=== PATIENT | male | born 1975 | race Caucasian/White ===

== ENCOUNTER 2018-01-13 14:09 | Inpatient (IN) | payer MEDICAID, OTHER ==
[2018-01-13] MEDS ORDERED: ADENOSINE 0 ML (14:26)
[2018-01-13 14:28] LABS: ADD MAN DIFF? NO
[2018-01-13 14:31] LABS: WHITE BLOOD COUNT 11.9 10^3/ul (4.8-10.8)
[2018-01-13 14:31] LABS: BASOPHIL # 0.1 10^3/ul (0.0-0.1); BASOPHILS % 0.5 % (0.0-2.0); EOSINOPHILS # 0.3 10^3/ul (0.0-0.5); EOSINOPHILS % 2.2 % (0.0-7.0); HEMATOCRIT 46.8 % (42.0-52.0); HEMOGLOBIN 16.1 g/dl (14.0-18.0); LYMPHOCYTES # 2.4 10^3/ul (0.8-2.9); LYMPHOCYTES % 19.7 % (15.0-51.0); MEAN CORPUSCULAR HEMOGLOBIN 29.2 pg (29.0-33.0); MEAN CORPUSCULAR HGB CONC 34.4 g/dl (32.0-37.0); MEAN CORPUSCULAR VOLUME 84.8 fl (82.0-101.0); MEAN PLATELET VOLUME 11.5 fl (7.4-10.4); MONOCYTE # 0.6 10^3/ul (0.3-0.9); MONOCYTES % 4.9 % (0.0-11.0); NEUTROPHIL # 8.6 10^3/ul (1.6-7.5); NEUTROPHILS % 72.4 % (39.0-77.0); PLATELET COUNT 312 10^3/UL (140-415); RED BLOOD COUNT 5.52 10^6/ul (4.70-6.10); RED CELL DISTRIBUTION WIDTH 12.8 % (11.5-14.5)
[2018-01-13 14:47] LABS: ANION GAP 15 (8-16); BLOOD UREA NITROGEN 21 mg/dl (7-20); CALCIUM 9.6 mg/dl (8.4-10.2); CARBON DIOXIDE 23 mmol/L (21-31); CHLORIDE 111 mmol/L (97-110); CREATININE 1.46 mg/dl (0.61-1.24); GLUCOSE 147 mg/dl (70-220); MAGNESIUM 1.9 mg/dl (1.7-2.5); POTASSIUM 3.5 mmol/L (3.5-5.1); SODIUM 145 mmol/L (135-144)
[2018-01-13 14:50] LABS: INR 0.95; PROTIME 12.8 Sec (11.9-14.9)
[2018-01-13 14:51] LABS: PARTIAL THROMBOPLASTIN TIME 29.7 Sec (23.0-35.0)
[2018-01-13 14:53] LABS: ETHANOL < 10.0 mg/dl
[2018-01-13] MEDS: ADENOSINE 3 MG/ML SYRINGE IV (15:00)
[2018-01-13] MEDS: SOD CHLORIDE 0.9% 1,000 ML IV (15:16)
[2018-01-13 15:52] LABS: AMPHETAMINE/METHAMPHETAMINE Negative (NEGATIVE); BARBITURATES Negative (NEGATIVE); BENZODIAZEPINES Negative (NEGATIVE); CANNABINOIDS Negative (NEGATIVE); COCAINE Negative (NEGATIVE); OPIATES Negative (NEGATIVE)
[2018-01-13] MEDS ORDERED: ONDANSETRON 4 MG INJ IV (16:30)
[2018-01-13] MEDS ORDERED: ACETAMINOPHEN 650 MG SUPP PR (16:30)
[2018-01-13] MEDS ORDERED: HYDROCODONE/APAP (5/325) TAB PO (16:30)
[2018-01-13] MEDS ORDERED: MAGNESIUM HYDROXIDE 30ML CUP PO (16:30)
[2018-01-13] MEDS ORDERED: NACL 0.9% 3 ML SYG IV (16:30)
[2018-01-13] MEDS ORDERED: BISACODYL 10 MG SUPP PR (16:30)
[2018-01-13] MEDS ORDERED: NITROGLYCERIN (SL) 0.4 MG TAB SL (16:30)
[2018-01-13] MEDS ORDERED: morphine 2 MG INJ IV (16:30)
[2018-01-13] MEDS ORDERED: DOCUSATE SODIUM 100 MG CAP PO (16:30)
[2018-01-13 16:45] LABS: CREATINE KINASE 373 IU/L (23-200)
[2018-01-13] MEDS: ASPIRIN 81 MG TAB PO (16:48)
[2018-01-13 16:58] LABS: CK INDEX 1.7; CK-MB 6.26 ng/ml (0.0-2.4)
[2018-01-13 17:04] LABS: FREE T4 (FREE THYROXINE) 1.28 ng/dl (0.64-1.79)
[2018-01-13] MEDS: ACETAMINOPHEN 325 MG TAB PO (17:18)
[2018-01-13] MEDS: POTASSIUM CHLORIDE (SR) 20 MEQ TAB PO (18:04)
[2018-01-13] MEDS: hydrALAzine 20 MG INJ IV (18:05)
[2018-01-13] MEDS: MAGNESIUM SULFATE 2 GM/50 ML 50 ML IVPB (18:07)
[2018-01-13 20:41] LABS: CREATINE KINASE 352 IU/L (23-200)
[2018-01-13 20:51] LABS: CK INDEX 2.1; CK-MB 7.37 ng/ml (0.0-2.4)
[2018-01-13] MEDS: METOPROLOL 25 MG TAB PO (23:02)
[2018-01-13] MEDS: ENOXAPARIN 100 MG/ML SYG SC (23:56)
[2018-01-14 06:41] LABS: ADD MAN DIFF? NO
[2018-01-14 06:47] LABS: BASOPHIL # 0.1 10^3/ul (0.0-0.1); BASOPHILS % 0.7 % (0.0-2.0); EOSINOPHILS # 0.4 10^3/ul (0.0-0.5); EOSINOPHILS % 5.7 % (0.0-7.0); HEMATOCRIT 40.9 % (42.0-52.0); HEMOGLOBIN 13.8 g/dl (14.0-18.0); LYMPHOCYTES # 2.1 10^3/ul (0.8-2.9); LYMPHOCYTES % 28.6 % (15.0-51.0); MEAN CORPUSCULAR HEMOGLOBIN 29.3 pg (29.0-33.0); MEAN CORPUSCULAR HGB CONC 33.7 g/dl (32.0-37.0); MEAN CORPUSCULAR VOLUME 86.8 fl (82.0-101.0); MEAN PLATELET VOLUME 11.5 fl (7.4-10.4); MONOCYTE # 0.5 10^3/ul (0.3-0.9); MONOCYTES % 6.2 % (0.0-11.0); NEUTROPHIL # 4.3 10^3/ul (1.6-7.5); NEUTROPHILS % 58.4 % (39.0-77.0); PLATELET COUNT 222 10^3/UL (140-415); RED BLOOD COUNT 4.71 10^6/ul (4.70-6.10); RED CELL DISTRIBUTION WIDTH 13.2 % (11.5-14.5)
[2018-01-14 06:47] LABS: WHITE BLOOD COUNT 7.4 10^3/ul (4.8-10.8)
[2018-01-14] MEDS: PANTOPRAZOLE 40 MG INJ IV (06:49)
[2018-01-14 07:03] LABS: HEMOGLOBIN A1C 5.5 % (0-5.9)
[2018-01-14 07:10] LABS: CREATINE KINASE 263 IU/L (23-200)
[2018-01-14 07:23] LABS: CK INDEX 2.3; CK-MB 6.14 ng/ml (0.0-2.4)
[2018-01-14 07:24] LABS: ALANINE AMINOTRANSFERASE 18 IU/L (13-69); ALBUMIN 3.3 g/dl (3.3-4.9); ALBUMIN/GLOBULIN RATIO 1.22; ALKALINE PHOSPHATASE 73 IU/L (42-121); ANION GAP 11 (8-16); ASPARTATE AMINO TRANSFERASE 32 IU/L (15-46); BILIRUBIN,INDIRECT 0.4 mg/dl (0-1.1); BILIRUBIN,TOTAL 0.4 mg/dl (0.2-1.3); BLOOD UREA NITROGEN 21 mg/dl (7-20); CALCIUM 9.1 mg/dl (8.4-10.2); CARBON DIOXIDE 26 mmol/L (21-31); CHLORIDE 109 mmol/L (97-110); CHOL/HDL RATIO 5.2 RATIO; CHOLESTEROL 172 mg/dl (100-200); GLUCOSE 107 mg/dl (70-220); HDL CHOLESTEROL 33 mg/dl (27-67); LDL CHOLESTEROL,CALCULATED 97 mg/dl; MAGNESIUM 2.1 mg/dl (1.7-2.5); PHOSPHORUS 3.9 mg/dl (2.5-4.9); POTASSIUM 3.7 mmol/L (3.5-5.1); SODIUM 142 mmol/L (135-144); TRIGLYCERIDES 211 mg/dl (0-149)
[2018-01-14 07:28] LABS: FREE T4 (FREE THYROXINE) 1.04 ng/dl (0.64-1.79)
[2018-01-14 07:31] LABS: FREE THYROXINE INDEX (Calc) 2.77 ug/ml (0.65-3.89); T3 UPTAKE 34.6 % (23.5-40.5)
[2018-01-14] MEDS: AMLODIPINE 5 MG TAB PO (08:18)
[2018-01-14] MEDS: METOPROLOL 25 MG TAB PO (08:19)
[2018-01-14] MEDS: ACETAMINOPHEN 325 MG TAB PO ×2 (08:25→15:57)
[2018-01-14] MEDS: hydrALAzine 20 MG INJ IV ×2 (09:20→12:55)
[2018-01-14] MEDS ORDERED: LIDOCAINE 1% (MDV) 20 ML INJ (10:35)
[2018-01-14] MEDS ORDERED: SOD CHLORIDE 0.9% 500 ML (10:35)
[2018-01-14] MEDS ORDERED: HEPARIN 1000 UNITS/ML 10 ML INJ (10:35)
[2018-01-14] MEDS ORDERED: IODIXANOL LOCM 100 ML BTL (10:35)
[2018-01-14] MEDS ORDERED: MIDAZOLAM 1 MG/ML 2 ML INJ (10:36)
[2018-01-14] MEDS ORDERED: FENTAnyl 50 MCG/ML VIAL (10:36)
[2018-01-14] MEDS ORDERED: NITROGLYCERIN (IC) 100 MCG/ML INJ (10:43)
[2018-01-14] MEDS ORDERED: VERAPAMIL 5 MG INJ (10:43)
[2018-01-14] MEDS ORDERED: IODIXANOL LOCM 50 ML BTL (11:31)
[2018-01-14] MEDS: HOLD all METFORMIN and METFORMIN CONTAINING medications for 48 hours post procedure. Chec XX (12:37)
[2018-01-14] MEDS: SOD CHLORIDE 0.9% 1,000 ML IV (12:37)
[2018-01-14] MEDS ORDERED: AMLODIPINE 5 MG TAB PO (13:00)
[2018-01-14] MEDS: INFLUENZA VIRUS VACCINE 0.5 ML (DISPENSING) IM* (14:38)
[2018-01-14] MEDS: HYDROCODONE/APAP (5/325) TAB PO (19:55)
[2018-01-14] MEDS ORDERED: morphine LIQ (10 MG/5 ML) CUP PO (22:00)
[2018-01-15] MEDS: PANTOPRAZOLE 40 MG INJ IV (06:30)
[2018-01-15] MEDS: ASPIRIN 81 MG TAB PO (08:09)
[2018-01-15] MEDS ORDERED: AMLODIPINE 5 MG TAB PO (10:30)
== END 2018-01-15 10:21 | disposition home or self-care (01) | DRG 287 ==
LOC: TEL 01-15 05:41 → E/R 14:09 → TEL 01-14 12:18 → E/R 20:34 → TEL 15:53
PROC: 4A023N7 Measurement of Cardiac Sampling and Pressure, Left Heart, Percutaneous Approach (ICD-10-PCS; principal; 2018-01-14 10:34)
PROC: B211YZZ Fluoroscopy of Multiple Coronary Arteries using Other Contrast (ICD-10-PCS; 2018-01-14 10:34)
PROC: B215YZZ Fluoroscopy of Left Heart using Other Contrast (ICD-10-PCS; 2018-01-14 10:34)
DX: I47.1 Supraventricular tachycardia (principal); I25.10 Atherosclerotic heart disease of native coronary artery without angina pectoris; N28.9 Disorder of kidney and ureter, unspecified; R74.8 Abnormal levels of other serum enzymes; E03.9 Hypothyroidism, unspecified; D72.829 Elevated white blood cell count, unspecified; E87.6 Hypokalemia; E83.42 Hypomagnesemia; I10 Essential (primary) hypertension; Z87.891 Personal history of nicotine dependence
CPT/HCPCS: 36415; 71045; 80048; 80053; 80061; 80307; 82550; 82553; 83036; 83735; 84100; 84436; 84439; 84443; 84479; 84481; 84484; 85025; 85610; 85730; 90686; 93005; 93306; 93458; 99291-25